=== PATIENT | male | born 1975 | race Caucasian/White ===

== ENCOUNTER 2019-05-22 11:34 | Emergency (ER) | payer OTHER ==
[~2019-05-22] VITALS: Ht 175.3 cm; Wt 74.8 kg
== END 2019-05-23 08:01 | disposition left against medical advice (07) ==
LOC: ER 11:34
DX: J36 Peritonsillar abscess (principal)

== ENCOUNTER 2021-04-15 14:15 | Outpatient (CLI) | payer OTHER | END 2021-04-15 14:20 | disposition home or self-care (01) | LOC: LAB 14:15 | DX: Z20.828 Contact with and (suspected) exposure to other viral communicable diseases (principal); A49.3 Mycoplasma infection, unspecified site; J09.X2 Influenza due to identified novel influenza A virus with other respiratory manifestations ==

== ENCOUNTER 2021-04-20 06:31 | Outpatient (CLI) | payer OTHER | END 2021-04-20 06:36 | disposition home or self-care (01) | LOC: LAB 06:31 | DX: Z20.822 Contact with and (suspected) exposure to COVID-19 (principal); Z11.52 Encounter for screening for COVID-19 ==

== ENCOUNTER 2022-07-19 09:55 | Emergency (ER) | payer OTHER ==
[~2022-07-19] VITALS: Ht 175.3 cm; Wt 77.1 kg
[2022-07-19] MEDS ORDERED: ZITHROMAX500 MG PO (11:53)
[2022-07-19] MEDS ORDERED: TUSNEL DM LIQU473 ML PO (11:57)
== END 2022-07-19 12:44 | disposition home or self-care (01) ==
LOC: ER 09:55
DX: R05.9 Cough, unspecified (principal); J06.9 Acute upper respiratory infection, unspecified

== ENCOUNTER 2023-02-19 11:38 | Emergency (ER) | payer OTHER ==
[~2023-02-19] VITALS: Ht 172.7 cm; Wt 70.3 kg
[~2023-02-19 11:38] MED LIST: TUSNEL DM LIQU473 ML PO; ZITHROMAX500 MG PO
[2023-02-19] MEDS ORDERED: CRESTOR5 MG PO (11:59)
[2023-02-19] MEDS ORDERED: ZETIA10 MG (11:59)
[2023-02-19 12:56] LABS: HEMATOCRIT 41.4 % (39.0-48.0); HEMOGLOBIN 13.6 g/dL (13-16.00); MEAN CELL VOLUME 92.1 fL (80.0-100.00); MEAN CORPUSCULAR HEMOGLOBIN 30.3 pg (27.00-32.0); MEAN CORPUSCULAR HGB CONC 32.9 g/dl (32.0-36.0); PLATELET COUNT 148 K/uL (150-450); RED CELL DISTRIBUTION WIDTH 13.6 % (11.5-14.5)
[2023-02-19 13:17] LABS: CALCIUM 8.8 mg/dL (8.5-10.1); CREATININE SERUM 1.19 mg/dL (0.70-1.30); GFR 58.24; MAGNESIUM 2.3 mg/dL (1.8-2.4); POTASSIUM 4.33 mEq/L (3.5-5.1)
== END 2023-02-19 15:58 | disposition home or self-care (01) ==
LOC: ER 11:38 → EDBD 12:07 → ER 15:58
PROVIDERS: General Practice
DX: G40.909 Epilepsy, unspecified, not intractable, without status epilepticus (principal)